=== PATIENT | female | born 1955 | race African-American/Black ===

== ENCOUNTER 2022-07-29 07:23 | Day surgery (SDC) | payer OTHER ==
[2022-07-24 14:57] VITALS: BMI 36.9
[2022-07-29] MEDS ORDERED: LIDOCAINE HCL/PF 2% SDV 5ML VIAL ONE (07:43)
[2022-07-29] MEDS ORDERED: PROPOFOL 120 ML ONE (07:44)
[2022-07-29 10:09] VITALS: BP 124/76; PULSE 87; RESP 19; TEMP 97.4
== END 2022-07-29 10:09 | disposition home or self-care (01) ==
LOC: FASU-ENDO 07:23
PROVIDERS: ATTEND Internal Medicine Gastroenterology
PROC: 0DB68ZX Excision of Stomach, Via Natural or Artificial Opening Endoscopic, Diagnostic (ICD-10-PCS; 2022-07-29)
PROC: 0DB98ZX Excision of Duodenum, Via Natural or Artificial Opening Endoscopic, Diagnostic (ICD-10-PCS; principal; 2022-07-29 09:06)
DX: K29.50 Unspecified chronic gastritis without bleeding (principal); B96.81 Helicobacter pylori [H. pylori] as the cause of diseases classified elsewhere; K29.80 Duodenitis without bleeding; R12 Heartburn
CPT/HCPCS: 88305-TC; 88341-TC; 88342-TC